=== PATIENT | female | born 1955 | race African-American/Black ===

== ENCOUNTER → 2016-11-30 | Outpatient (CLI) | payer OTHER | LOC: FIMAGING 12:19 | DX: Z12.31 Encounter for screening mammogram for malignant neoplasm of breast (principal); R22.32 Localized swelling, mass and lump, left upper limb | CPT/HCPCS: G0202 ==

== ENCOUNTER → 2017-12-01 | Outpatient (CLI) | payer OTHER | LOC: FIMAGING 10:11 | PROVIDERS: ATTEND Family Medicine | DX: Z12.31 Encounter for screening mammogram for malignant neoplasm of breast (principal); Z13.820 Encounter for screening for osteoporosis; M85.89 Other specified disorders of bone density and structure, multiple sites ==